=== PATIENT | male | born 1955 | race African-American/Black ===

== ENCOUNTER 2024-04-09 11:55 | Emergency (ER) | payer MEDICARE, MEDICAID ==
[~2024-04-09] VITALS: Ht 188 cm; Wt 122.5 kg
[2024-04-09 11:58] VITALS: BP 182/97; PULSE 80; RESP 18; TEMP 98.3; O2SAT 95
[2024-04-09] MEDS: SODIUM CHLORIDE 0.9% 1,000 ML IV ONE (12:15)
== END 2024-04-09 14:20 | disposition home or self-care (01) ==
LOC: ER 11:55
DX: T40.1X1A Poisoning by heroin, accidental (unintentional), initial encounter (principal); Z53.21 Procedure and treatment not carried out due to patient leaving prior to being seen by health care provider; Y92.9 Unspecified place or not applicable
CPT/HCPCS: 82962; J7030; Z7610 ×2; 99283